=== PATIENT | male | born 1985 | race Asian ===

== ENCOUNTER 2016-07-02 13:12 | Emergency (ER) | payer SELFPAY ==
[2016-07-02] MEDS ORDERED: Ibuprofen TAB* 600 MG PO ONE (20:21)
--- NOTE | 2016-07-02 20:28 | ED ---
Throat Pain/Nasal Congestion - HPI Summary HPI Summary: 30 male presents today complaining of "something in his left eye" that happened around 12:00pm today, 07/02/16. Patient speaks [place] and there was a language barrier. A machine molder squeeze was used. He states he was wrestling with his friend as a joke and got something in his eye. His friend did not have anything in his hand. He went to the store and tried using eye drops however did not get any relief. Patient states it is painful to open and close his eye. His eye is very sensitive to light. He does not have trouble seeing when able to. Denies any other pain at this time. No PMHx, alcohol or drug use. - History of Current Complaint Chief Complaint: EDEyeProblem Hx Obtained From: Patient, [facility] - on phone Onset/Duration: Sudden Onset Severity: Moderate Associated Signs And Symptoms: Positive: FB Sensation - in left eye Cough: None Related History: Smoking - cigarette use - Allergies/Home Medications Allergies/Adverse Reactions: Allergies Allergy/AdvReac Type Severity Reaction Status Date / Time No Known Allergies Allergy Verified 07/02/16 13:18 PMH/Surg Hx/FS Hx/Imm Hx Previously Healthy: Yes Endocrine/Hematology History: Denies: Hx Diabetes Cardiovascular History: Denies: Hx Hypertension Respiratory History: Denies: Hx Asthma Infectious Disease History: No Infectious Disease History: Denies: Traveled Outside the [place] in Last 30 Days - Family History Known Family History: Positive: Unknown - Social History Alcohol Use: None Substance Use Type: Reports: None Hx Tobacco Use: Yes Smoking Status (MU): Current Every Day Smoker Review of Systems Constitutional: Negative Positive: Photophobia, Erythema, Other - edema, foreign body sensation Cardiovascular: Negative Respiratory: Negative Gastrointestinal: Negative Skin: Negative Neurological: Negative Psychological: Normal All Other Systems Reviewed And Are Negative: Yes Physical Exam Triage Information Reviewed: Yes Vital Signs On Initial Exam: Initial Vitals Temp Pulse Resp BP Pulse Ox 97.3 F 77 18 136/65 100 07/02/16 13:15 07/02/16 13:15 07/02/16 13:15 07/02/16 13:15 07/02/16 13:15 Vital Signs Reviewed: Yes Appearance: Positive: Well-Appearing, Well-Nourished, Pain Distress - moderate pain distress Skin: Positive: Warm, Skin Color Reflects Adequate Perfusion, Dry Head/Face: Positive: Normal Head/Face Inspection Eyes: Positive: EOMI, MARTIN, Conjunctiva Inflammed - right eye normal. left eye: erythema, edema, irritation. Foriegn body noted with light on medial edge of iris. white ring surrounding the foreign body. PERRL. visual acuity normal when able to open eye. after tetracaine application foreign body was attempted to be removed with q-tip however it was unsuccessful., Discharge ENT: Positive: Normal ENT inspection Neck: Positive: Supple, Nontender Respiratory/Lung Sounds: Positive: Clear to Auscultation, Breath Sounds Present Cardiovascular: Positive: Normal, RRR Musculoskeletal: Positive: Normal Neurological: Positive: Normal, Sensory/Motor Intact, Alert, Oriented to Person Place, Time Psychiatric: Positive: Normal Procedures - Eye Procedure Alcaine Drops Administered: Yes - flourescein stain also done Eye FB Removal: removal w/ cotton swab - 4 attempts made to remove froeign body , however unsuccessful Antibiotic Ointment/Drps Admin: left eye - patient will take bottle home and apply until seen by opthamologist Diagnostics - Vital Signs Vital Signs Temp Pulse Resp BP Pulse Ox 07/02/16 13:15 97.3 F 77 18 136/65 100 - Laboratory Lab Statement: Any lab studies that have been ordered have been reviewed, and results considered in the medical decision making process. EENT Course/Dx - Course Course Of Treatment: tetracaine and flourescien stain applied. multiple attempts to remove foreign body from left eye; however unsuccessul. he was given ibuprofen in ED. Was sent home with Tobramycin and pain management until seen by opthamologist tomorrow. - Differential Diagnoses Differential Diagnoses: Abrasion, Cellulitis, Foreign Body, Keratitis, Uveitis - Diagnoses Provider Diagnoses: Foreign body in eyeball, left Discharge - Discharge Plan Condition: Stable Disposition: HOME Patient Education Materials: Oxycodone/Acetaminophen (By mouth), Eye Foreign Body (ED) Print Language: MEXICAN Referrals: Sy Nava MD [Medical Doctor] - Additional Instructions: Take medication as prescribed. Please call eye doctor tomorrow and make an appointment to be seen to have the foreign body removed. Rest eye and do not put anything in it besides medication. Try not to touch it. Heat or ice may help with pain relief. If symptoms get worse or do not improve please return to ER.
[2016-07-02] MEDS ORDERED: oxyCODONE/Acetamin 5/325 MG* TAB PO ONE (21:40)
[2016-07-02 21:49] VITALS: BP 128/64
[2016-07-02] MEDS ORDERED: Tobramycin 0.3% OPHTH.SOL* 5 ML BOT (regular eye drops) LEFT EYE SCH (22:00)
== END 2016-07-02 21:47 | disposition home or self-care (01) ==
LOC: ED 13:12
DX: H53.149 Visual discomfort, unspecified (principal); L53.9 Erythematous condition, unspecified; F17.210 Nicotine dependence, cigarettes, uncomplicated; T15.92XA Foreign body on external eye, part unspecified, left eye, initial encounter; X58.XXXA Exposure to other specified factors, initial encounter; Y93.9 Activity, unspecified; Y92.9 Unspecified place or not applicable; Y99.9 Unspecified external cause status
CPT/HCPCS: 99283; A9270-GY